=== PATIENT | male | born 1970 | race Caucasian/White ===

== ENCOUNTER 2016-10-13 13:26 | Emergency (ER) | payer OTHER ==
[2016-10-13] MEDS ORDERED: FLUCONAZOLE 150 MG TABLET ONE (14:46)
[2016-10-13 14:53] LABS: URINE BILIRUBIN NEGATIVE (NEGATIVE); URINE BLOOD NEGATIVE (NEGATIVE); URINE GLUCOSE (UA) NEGATIVE (NEGATIVE); URINE LEUKOCYTE ESTERASE NEGATIVE (NEGATIVE); URINE NITRITE NEGATIVE (NEGATIVE); URINE PROTEIN NEGATIVE (NEGATIVE); URINE UROBILINOGEN NORMAL (0-1 mg/dl)
[2016-10-13 14:54] LABS: URINE APPEARANCE CLEAR; URINE COLOR YELLOW
[2016-10-13] MEDS ORDERED: CLOTRIMAZOLE 1% 15 APPLIC/15 G CREAM ONE (15:02)
[2016-10-13] MEDS ORDERED: FLUCONAZOLE 100 MG TABLET PO ONE (15:15)
[2016-10-14 15:50] LABS: CHLAMYDIA BD Negative (Negative); N.GONORRHOEAE BD Negative (Negative); SOURCE Urine (())
== END 2016-10-13 15:30 | disposition home or self-care (01) ==
LOC: ED 13:26
DX: B36.9 Superficial mycosis, unspecified (principal); B35.6 Tinea cruris; I10 Essential (primary) hypertension; E66.9 Obesity, unspecified
CPT/HCPCS: 87491; 87591; 87086; 87186 ×2; 81003; 87077; 99283 ×2; A9270 ×2